=== PATIENT | female | born 1960 | race American Indian/Alaskan Native ===

== ENCOUNTER 2020-04-06 12:26 | Emergency (ER) | payer MEDICARE ==
[2020-04-06 12:35] VITALS: BP 133/87
--- NOTE | 2020-04-06 12:55 | Emergency Department Report ---
ED Female HPI - General Chief complaint: Urogenital-Female Stated complaint: ABD PAIN/NAUSEA/BLOOD IN URINE Source: patient Mode of arrival: Ambulatory Limitations: No Limitations - History of Present Illness Initial comments: 60 y/o female c/o dusuria and hematuria time 1 week. Has an appointment next week with OB. No fever or chills. Nausea no vomiting. No vag d/c. Hx/o HTN and arthritis. MD Complaint: dysuria, pelvic pain Onset/Timin -: week(s) Location: suprapubic Severity: moderate Severity scale (0 -10): 7 Quality: sharp Consistency: intermittent Improves with: none Worsens with: urination Associated Symptoms: nausea/vomiting, hematuria - Related Data Home Medications Medication Instructions Recorded Confirmed Last Taken Promethazine [Phenergan] 25 mg PO Q6HR PRN 02/23/18 02/23/18 Unknown Simvastatin 20 mg PO DAILY 02/23/18 02/23/18 Unknown amLODIPine 10 mg PO DAILY 02/23/18 02/23/18 Unknown raNITIdine HCL [Heartburn Relief] 150 mg PO DAILY 02/23/18 02/23/18 Unknown Previous Rx's Medication Instructions Recorded Last Taken Type Nitrofurantoin [place]/M-Cryst 100 mg PO Q12HR 10 Days #20 capsule 04/06/20 Unknown Rx [Macrobid CAP] Allergies Allergy/AdvReac Type Severity Reaction Status Date / Time losartan Allergy Angioedema Verified 02/24/18 10:51 ED Review of Systems ROS: Stated complaint: ABD PAIN/NAUSEA/BLOOD IN URINE Other details as noted in HPI Comment: All other systems reviewed and negative ED Past Medical Hx - Past Medical History Previous Medical History?: Yes Hx Hypertension: Yes Hx Congestive Heart Failure: No Hx Diabetes: No Hx Arthritis: Yes Hx Asthma: No Hx COPD: No Additional medical history: dengenative joints - Surgical History Past Surgical History?: Yes Additional Surgical History: hip replacement - Social History Smoking Status: Never Smoker Substance Use Type: None - Medications Home Medications: Home Medications Medication Instructions Recorded Confirmed Last Taken Type Promethazine [Phenergan] 25 mg PO Q6HR PRN 02/23/18 02/23/18 Unknown History Simvastatin 20 mg PO DAILY 02/23/18 02/23/18 Unknown History amLODIPine 10 mg PO DAILY 02/23/18 02/23/18 Unknown History raNITIdine HCL [Heartburn Relief] 150 mg PO DAILY 02/23/18 02/23/18 Unknown History Nitrofurantoin [place]/M-Cryst 100 mg PO Q12HR 10 Days #20 capsule 04/06/20 Unknown Rx [Macrobid CAP] ED Physical Exam - General Limitations: No Limitations General appearance: alert, in no apparent distress - Head Head exam: Present: atraumatic, normocephalic - Eye Eye exam: Present: normal appearance - ENT ENT exam: Present: normal exam - Neck Neck exam: Present: full ROM - Respiratory Respiratory exam: Present: normal lung sounds bilaterally. Absent: accessory muscle use - Cardiovascular Cardiovascular Exam: Present: regular rate, normal rhythm. Absent: systolic murmur, diastolic murmur, rubs, gallop - GI/Abdominal GI/Abdominal exam: Present: soft, tenderness. Absent: distended, guarding - Extremities Exam Extremities exam: Present: normal inspection, full ROM - Back Exam Back exam: Present: normal inspection - Neurological Exam Neurological exam: Present: alert, oriented X3, normal gait - Psychiatric Psychiatric exam: Present: normal affect, normal mood - Skin Skin exam: Present: warm, dry, intact, normal color. Absent: rash ED Course Vital Signs 04/06/20 12:34 Temperature 98.2 F Pulse Rate 78 Respiratory 20 Rate Blood Pressure 133/87 O2 Sat by Pulse 99 Oximetry ED Medical Decision Making - Lab Data Laboratory Tests 04/06/20 12:52 Urine Color Yellow Urine Turbidity Slightly-cloudy Urine pH 6.0 Ur Specific [place] 1.015 Urine Protein <15 mg/dl Urine Glucose (UA) Neg Urine Ketones Neg Urine Blood Mod Urine Nitrite Neg Urine Bilirubin Neg Urine Urobilinogen < 2.0 Ur Leukocyte Esterase Mod Urine WBC (Auto) 87.0 H Urine RBC (Auto) 183.0 U Epithel Cells (Auto) 1.0 Urine Bacteria (Auto) 1+ Ur Transition Epith Cell < 1 - Medical Decision Making 60 y/o female c/o dusuria and hematuria time 1 week. Has an appointment next week with OB. No fever or chills. Nausea no vomiting. No vag d/c. Hx/o HTN and arthritis. Ua sent. Critical care attestation.: If time is entered above; I have spent that time in minutes in the direct care of this critically ill patient, excluding procedure time. ED Disposition Clinical Impression: UTI (urinary tract infection) Disposition: DC- TO HOME OR SELFCARE Is pt being admited?: No Does the pt Need Aspirin: No Condition: Stable Instructions: Urinary Tract Infection, Adult, [id number] Additional Instructions: Complete medication as prescribed. Increase water intake. Prescriptions: Nitrofurantoin [place]/M-Cryst [Macrobid CAP] 100 mg PO Q12HR 10 Days #20 capsule Referrals: Your, Primary Care Provider [Other] - 3-5 Days
[2020-04-06 13:43] LABS: Bacteria,Urine 1+ /HPF (Negative); Bilirubin,Urine NEG (Negative); Blood,Urine MOD (Negative); Color,Urine Yellow (Yellow); Protein,Urine <15 mg/dL mg/dL (Negative); Urobilinogen,Urine < 2.0 mg/dL (<2.0)
== END 2020-04-06 14:12 | disposition home or self-care (01) ==
LOC: ED 12:26
DX: N39.0 Urinary tract infection, site not specified (principal); I10 Essential (primary) hypertension; M19.90 Unspecified osteoarthritis, unspecified site; Z79.899 Other long term (current) drug therapy; Z88.8 Allergy status to other drugs, medicaments and biological substances; Z98.890 Other specified postprocedural states
CPT/HCPCS: 81001; 87086; 99283